=== PATIENT | male | born 1995 | race Two or more races ===

== ENCOUNTER 2021-01-22 10:08 | Emergency (ER) | payer OTHER ==
[~2021-01-22] VITALS: Ht 182.9 cm; Wt 84.0 kg
[2021-01-22 10:13] VITALS: BP 149/85
[2021-01-22] MEDS ORDERED: FLUORESCEIN 1MG EYE STRIP. ONE (10:19)
[2021-01-22] MEDS ORDERED: TETRACAINE 0.5% OPHTH SOLUTION 4ML BOTTLE. ONE (10:19)
[2021-01-22] MEDS ORDERED: CIPROFLOXACIN 0.3% OPHTH SOLUTION 2.5ML BOTTLE. OS ONE (10:45)
--- NOTE | 2021-01-22 10:47 | PHYS DOC ---
Past History Past Medical History: No Pertinent History Past Surgical History: No Surgical History Alcohol Use: Occasionally Adult General Chief Complaint Chief Complaint: EYE PROBLEMS HPI HPI Patient is a 26-year-old male who presents to the emergency room complaining of left eye irritation. He states that he started feeling like there is something in his eye last night but ignored it. When he woke up this morning he felt very strongly there is something in his eye and his eye was red and irritated. He denies pain with eye movement. He denies any kind of fever. He has never had anything like this before. Denies any kind of trauma. He has not had any kind of rash around the eye. Review of Systems Review of Systems Complete ROS is negative unless otherwise documented in HPI Current Medications Current Medications Current Medications Medications (Trade) Dose Ordered Sig/Arielle Start Time Stop Time Status Last Admin Dose Admin Ciprofloxacin 1 drop 1X ONCE 01/22/21 10:45 01/22/21 10:46 Fluorescein Sodium (Ful-Danisha 1mg) 1 strip STK-MED ONCE 01/22/21 10:19 01/22/21 10:19 DC Tetracaine HCl (Tetracaine) 40 drop STK-MED ONCE 01/22/21 10:19 01/22/21 10:19 DC Allergies Allergies Allergies Coded Allergies Type Severity Reaction Last Updated Verified No Known Drug Allergies 01/22/21 No Physical Exam Physical Exam General: Awake, alert, NAD. Well Nourished, well hydrated. Cooperative HENT: Atraumatic, EOMI, PERRL, airway patent, moist oral mucosa Left eye: Chemosis, no drainage, no hyphema, increased fluorescein uptake in the 3 o'clock position consistent with a corneal abrasion Neck: Supple, trachea midline Respiratory: CTA bilaterally, normal effort, no wheezing/crackles CV: RRR, no murmur, cap refill <2 GI: Soft, nondistended, nontender, no masses MSK: No obvious deformities Skin: Warm, dry, intact Neuro: A&O x3, speech NL, sensory and motor grossly intact, no focal deficits Psych: Normal affect, normal mood, not suicidal or homicidal Current Patient Data Vital Signs Vital Signs Date Time Temp Pulse Resp B/P (MAP) Pulse Ox O2 Delivery O2 Flow Rate FiO2 01/22/21 10:13 98.0 72 16 149/85 (106) 99 Room Air EKG EKG [] Radiology/Procedures Radiology/Procedures [] Heart Score Risk Factors: Risk Factors: DM, Current or recent (<one month) smoker, HTN, HLP, family hi story of CAD, obesity. Risk Scores: Risk Factors: DM, Current or recent (<one month) smoker, HTN, HLP, family history of CAD, obesity. Course & Med Decision Making Course & Med Decision Making Pertinent Labs and Imaging studies reviewed. (See chart for details) Patient is a 26-year-old male who presents to the emergency room complaining of eye pain. Patient does have chemosis but does not have any signs of drainage or eyelid swelling. He has full range of motion of his eyes. On exam patient does have a small corneal abrasion. He does not have a foreign body. There is no ulceration. Patient has complete pain relief with topical anesthetic. He does not have signs of keratitis. Patient does not have signs of orbital cellulitis. There is no proptosis of the eye. He is able to fully open and close his eyes. This is likely due to a an abrasion with infection. Will place him on ciprofloxacin drops. Patient will need to follow-up with ophthalmology. Patient's test results and vitals while in the ED were fully reviewed and discussed with the patient. Patient is stable and at this time does not need admission to the hospital. We have discussed strict return precautions and the importance of following up with their Primary Care Physician. Patient stated understanding and was given an opportunity to ask any questions. Patient is in agreement with plan. Dragon Disclaimer Dragon Disclaimer This electronic medical record was generated, in whole or in part, using a voice recognition dictation system. Departure Departure: Impression: Primary Impression: Chemosis of conjunctiva Additional Impression: Corneal abrasion Disposition: 01 DC HOME SELF CARE/HOMELESS Condition: STABLE Referrals: NON,STAFF (PCP) ULICES SHARMA DO Patient Instructions: Bacterial Conjunctivitis, Eye - Corneal Abrasion Problem Qualifiers ROSEANN PRYOR MD Jan 22, 2021 10:47
== END 2021-01-22 10:53 | disposition home or self-care (01) ==
LOC: ER 10:08
DX: S05.02XA Injury of conjunctiva and corneal abrasion without foreign body, left eye, initial encounter (principal); H11.422 Conjunctival edema, left eye; X58.XXXA Exposure to other specified factors, initial encounter; Y93.89 Activity, other specified; Y92.89 Other specified places as the place of occurrence of the external cause; Y99.8 Other external cause status
CPT/HCPCS: 99283